=== PATIENT | female | born 1990 | race Caucasian/White ===

== ENCOUNTER 2016-11-20 07:14 | Inpatient (IN) | payer MEDICAID ==
[2016-11-20] MEDS ORDERED: IV START KIT ONE (09:27)
[2016-11-20] MEDS ORDERED: LACTATED RINGERS 1,000 ML ONE ×2 (09:27→09:28)
[2016-11-20] MEDS ORDERED: OXYTOCIN 10 UNITS/ML VIAL ONE (09:27)
[2016-11-20] MEDS ORDERED: LIDOCAINE 1% (PRES FREE) 30 ML VIAL ONE (09:28)
[2016-11-20] MEDS ORDERED: LIDOCAINE Viscous 2% 15 ML UDCUP ONE (09:28)
[2016-11-20] MEDS ORDERED: OXYTOCIN IN LR 500 ML IV ONE ×2 (09:28→09:51)
[2016-11-20] MEDS ORDERED: MINERAL OIL 25 ML BOT ONE (09:28)
[2016-11-20] MEDS ORDERED: PUMP TUBING ONE (09:28)
[2016-11-20] MEDS ORDERED: EPIDURAL PROCEDURE TRAY ONE (09:44)
[2016-11-20] MEDS: LACTATED RINGERS 1,000 ML IV PRN ×2 (09:45→11:58)
[2016-11-20] MEDS ORDERED: LACTATED RINGERS 500 ML IV ONE ×2 (09:52→10:15)
[2016-11-20] MEDS ORDERED: EPIDURAL PUMP SET ONE (10:10)
[2016-11-20] MEDS ORDERED: FENTANYL/ROPIVACAINE EPIDURAL 250 ML EP ONE (10:11)
[2016-11-20 10:22] LABS: HEMATOCRIT 39.3 % (37.0-47.0); HEMOGLOBIN 13.2 gm/l (12.0-16.0); MEAN CELL VOLUME 92.9 fl (81.0-99.0); MEAN CORPUSCULAR HEMOGLOBIN 31.2 pg (27.0-31.0); MEAN CORPUSCULAR HGB CONC 33.6 g/dl (33.0-37.0); RED CELL DISTRIBUTION WIDTH 13.5 % (11.5-14.5)
[2016-11-20] MEDS ORDERED: FENTANYL/ROPIVACAINE EPIDURAL 250 ML EP SCH (10:40)
[2016-11-20] MEDS ORDERED: METOCLOPRAMIDE HCL 5 MG/ML 2ML VIAL IV PRN (10:40)
[2016-11-20] MEDS ORDERED: ONDANSETRON 4 MG/2ML 2 ML VIAL IV PRN (10:40)
[2016-11-20] MEDS ORDERED: NALOXONE HCL 0.4 MG/ML VIAL IV PRN (10:40)
[2016-11-20] MEDS ORDERED: SODIUM CHLORIDE 0.9% 500 ML IV PRN (10:40)
[2016-11-20] MEDS ORDERED: LACTATED RINGERS 1,000 ML IV SCH ×2 (10:40→17:30)
[2016-11-20] MEDS ORDERED: DIPHENHYDRAMINE HCL 50 MG/1 ML VIAL IV PRN (10:40)
[2016-11-20] MEDS ORDERED: EPHEDRINE SULFATE 50 MG/ML 1ML VIAL IV PRN (10:40)
[2016-11-20] MEDS ORDERED: LACTATED RINGERS 500 ML IV PRN (10:40)
[2016-11-20] MEDS ORDERED: NALBUPHINE HCL 20 MG/ML AMP IV PRN (10:40)
[2016-11-20 11:17] VITALS: BMI 26.9
--- NOTE | 2016-11-20 13:22 | PCMAN ---
OB Admission Note - History : 1 Term: 0 : 0 Abortions (S&E): 0 Livin Gestational Age (weeks): 40 Days (#/7): 3 Admit Cervical Dilation:: 4.5 Admit Cervical Effacement (%):: 90 Admit Station:: -1 Admit Presentaton:: vertex Membrane Status: Intact Labor Onset (Date): 11/20/16 Labor Onset (Time): 05:00 Contractions: Yes Contraction Frequency:: 1.5-4 Heart Rate:: 150 (mod [place]ustine/+accels/intermittent variables) Status:: Cat 2 EFW:: 6# Summary of Course:: course c/b late transfer of care from [place] Rh negative, rec'd rhogam 10/18/16 @ 35w5d Measured size < dates, had growth scan done u/s: LATIA 11/17/16 10/25/16, 36w5d, EFW 2472g (25th percentile), normal S/D ratio, AC=HC Meds: PNV Allergies: NKDA SurgHx: none SH: denies x 3 - Labs Blood Type: B (-) negative Rubella Status: Immune GBS Status: Negative Abnormal Labs: None - Review of Systems +FM, +ctx, some LOF, no VB - Physical Exam General: Afebrile Psych/Mental Status: Mood/Affect Appropriate Neurological: Grossly Intact, Alert HEENT: Atraumatic, EOMI Lungs: Clear to Auscultation Bilaterally, Normal Air Movement Cardiovascular: Regular Rate and Rhythm, Normal S1, Normal S2, No Murmur Extremities: No Edema - Problems (1) Active labor at term Status: Acute Code: [id number]/Plan: 26 yo @ 40w3d, presented in early active labor 1. Labor: expectant management, pt bear q2-3min with cervical change. Consider AROM if no change in SVE. 2. FWB: cat 2 for intermittent variables, but overall reassuring 3. Pain: desires epidural 4. GBS neg 5. Rh neg: will need pp rhogam depending on Rh status
--- NOTE | 2016-11-20 13:38 | PDOC36 ---
Provider Note Subject: S: pt comfortable s/p epidural. O:97.7 97/56 76 SVE: 8.5/100/0 FHT: baseline 145bpm/mod augustine/+accels/early decels [place]: q2-3min A/P: 26 yo @ 40w3d, labor. 1. Labor: pt progressing. Attempted AROM with no LOF, pt likely ruptured at 8am per history 2. FWB: Cat 2 but overall reassuring 3. pain: s/p epidural 4. GBS neg
--- NOTE | 2016-11-20 15:52 | PDOC36 ---
Provider Note Subject: S: pt comfortable, feeling some pressure: O: 98.3 107/65 105 SVE: 9.5/100/0, very thin rim on R side [place]: q2-3 FHT: baseline 150bpm/mod augustine/+accels/intermittent variables A/P: 26 yo @ 40w3d, labor. 1. Labor: pt progressing. Pt will lie on R side, very thin rim of cervix on R. Will recheck in 1 hour, likely start pushing 2. FWB: Cat 2, overall reassuring 3. GBS neg 4. Pain: s/p epidural
[2016-11-20] MEDS ORDERED: MINERAL OIL 25 ML BOT TP ONE (17:39)
--- NOTE | 2016-11-20 19:52 | PCMDEL ---
Delivery Note - Labor 1st stage (hr/min):: 12h21m 2nd stage (hr/min):: 1h34m 3rd stage (hr/min):: 7m Total (hr/min):: 11h55m Pushed (hr/min):: 1h10m - Delivery Delivery (Date): 11/20/16 Delivery (Time): 18:55 Gender: Male Position: OA Umbilical Cord: 3 Vessel Delayed Cord Clamping:: 2-3 min 1 Minute Total: 8 5 Minute Total: 9 Placenta:: intact EBL:: 400ml Perineum:: partial 3rd degree: fibers of sphincter reinforced with 2 interrupted sutures, then repaired in standard fashion. bilateral suchal tears and bilateral labial tears repaired for excellent hemostasis Suture:: 3-0 vicryl x 4 Anesthesia/Meds:: epidural Length ROM:: 10h55m Comments:: Uncomplicated over intact perineum. Head delivered in OA position, shoulders and body easily followed. placed on maternal abdomen. Cord clamping delayed by 2min and cut by FOB. A midline partial third degree laceration was repaired in standard fashion (first fibers of external sphinchter were reinforced with interrupted sutures), then bilateral suchal tears were repaired, then bilateral labial tears. Active management of 3rd stage with IV pitocin. Fundus was firm with massage. Hemostasis confirmed. EBL 400ml.
[2016-11-20] MEDS ORDERED: LANOLIN 50 APPLIC/7G TUBE TP PRN (19:56)
[2016-11-20] MEDS ORDERED: BENZOCAINE/MENTHOL 60 APPLIC/BOT TP PRN (19:56)
[2016-11-20] MEDS ORDERED: OXYCODONE HCL 5 MG TABLET PO PRN (19:56)
[2016-11-20] MEDS ORDERED: RHOGAM 300 MCG SYRINGE IV ONE (21:51)
[2016-11-21 06:09] LABS: HEMATOCRIT 32.4 % (37.0-47.0); HEMOGLOBIN 10.7 gm/l (12.0-16.0)
[2016-11-21] MEDS: HYDROCODONE/ACETAMINOPHEN 5/325MG TABLET PO PRN ×2 (08:47→23:47)
--- NOTE | 2016-11-21 09:09 | PDOC44 ---
- Subjective Day: 1 Reports Pain Tolerable - Objective Temp Pulse Resp BP Pulse Ox 98.7 F 109 16 111/60 11/20/16 23:03 11/20/16 23:03 11/20/16 23:03 11/20/16 23:03 Lab Results 11/21/16 11/20/16 05:30 10:10 WBC 12.4 H RBC 4.23 Hgb 10.7 L D 13.2 Hct 32.4 L 39.3 Plt Count 182 11/20/16 10:10 MCH 31.2 H Current Medications Generic Name Dose Route Start Last Admin Trade Name Freq PRN Reason Stop Dose Admin Acetaminophen/Hydrocodone Bitart 1 - 2 tab 11/20/16 19:56 [place] 5/325 PO Q4H PRN Pain (Moderate) Benzocaine/Menthol 1 applic 11/20/16 19:56 11/20/16 23:07 Dermoplast TP 1 bot PRN PRN Administration Patient Comfort Docusate Sodium 100 mg 11/20/16 19:56 Colace PO DAILY PRN Comfort/constipation Emollient Ointment 1 applic 11/20/16 19:56 [id number] TP PRN PRN sore nipples Ibuprofen 600 mg 11/20/16 19:56 Motrin PO Q6H PRN Pain (Mild) Oxycodone HCl 5 - 10 mg 11/20/16 19:56 Roxicodone PO Q3H PRN Pain (Severe) Sodium Chloride 10 ml 11/20/16 19:56 Normal Saline 10ml Flush IV PRN PRN IV Flush - Physical Exam General: Afebrile Psych/Mental Status: Mood/Affect Appropriate, Judgment/Insight Intact, Bonding Well Neurological: Oriented x 4 Lungs: Clear to Auscultation Bilaterally Cardiovascular: Regular Rate and Rhythm Fundus: Firm, Below Umbilicus - Problems:Assessment/Plan (1) Vaginal delivery Status: AcuteAssessment/Plan: Doing well Normal exam Continue routine care (2) Anal sphincter tear w/o 3rd deg perineal laceration, delivered Status: AcuteAssessment/Plan: Pain controlled Using stool softener
[2016-11-21] MEDS: DOCUSATE SODIUM 100 MG CAPSULE PO PRN (10:46)
[2016-11-21] MEDS: IBUPROFEN 600 MG TABLET PO PRN ×2 (10:46→19:31)
[2016-11-21] MEDS ORDERED: DOCUSATE SODIUM 100 MG CAPSULE PO PRN (18:01)
[2016-11-21] MEDS ORDERED: HYDROCODONE/ACETAMINOPHEN 5/325MG TABLET PO PRN (18:01)
[2016-11-21] MEDS ORDERED: IBUPROFEN 800 MG TABLET PO PRN (18:01)
[2016-11-21] MEDS ORDERED: MAGNESIUM HYDROXIDE 30 ML UDCUP PO PRN (18:01)
[2016-11-21] MEDS ORDERED: SENNOSIDES 8.6 MG TABLET PO PRN (18:01)
[2016-11-21] MEDS ORDERED: LACTATED RINGERS 1,000 ML IV PRN (18:01)
[2016-11-21] MEDS ORDERED: BENZOCAINE/MENTHOL 60 APPLIC/BOT TP PRN (18:01)
[2016-11-21] MEDS ORDERED: OXYCODONE HCL 5 MG TABLET PO PRN (18:01)
[2016-11-21] MEDS ORDERED: LANOLIN 50 APPLIC/7G TUBE TP PRN (18:01)
[2016-11-22 06:54] LABS: HEMATOCRIT 29.9 % (37.0-47.0); HEMOGLOBIN 9.8 gm/l (12.0-16.0)
[2016-11-22] MEDS: DOCUSATE SODIUM 100 MG CAPSULE PO PRN (08:43)
[2016-11-22] MEDS: IBUPROFEN 600 MG TABLET PO PRN (08:44)
[2016-11-22 08:56] VITALS: BP 108/56
--- NOTE | 2016-11-22 11:40 | PDOC39B ---
Hospital Course: ADMIT DATE: 11/20/16 DISCHARGE DATE: 11/22/16 ADMISSION DIAGNOSES: IUP at term in active labor PROCEDURES: HISTORY OF PRESENT ILLNESS: 26 year old G1 T0 L0 at 40 weeks 3 days presenting with [facility] HOSPITAL COURSE: The patient was admitted in early active labor. Progressed to complete. Uncomplicated w partial 3rd deg perineal lac, s/p repair. By day of discharge the patient is ambulating, eating, voiding, and passing flatus without difficulty. Pain is controlled and lochia is appropriate. She is . - Physical Exam Vital Signs: Temp Pulse Resp BP Pulse Ox 97.8 F 88 18 108/56 11/22/16 08:20 11/22/16 08:20 11/22/16 08:20 11/22/16 08:20 General: Afebrile, No Acute Distress Psych/Mental Status: Mood/Affect Appropriate, Judgment/Insight Intact, Bonding Well Neurological: Grossly Intact, Alert, Normal Speech HEENT: Atraumatic, Mucous membr. moist/pink Lungs: Clear to Auscultation Bilaterally Cardiovascular: Regular Rate and Rhythm Breast: Soft Fundus: Firm, Midline, Below Umbilicus Skin: Normal Color, Warm, Dry, Intact, No Rash - Discharge Diagnosis (1) Anal sphincter tear w/o 3rd deg perineal laceration, delivered Status: AcuteAssessment/Plan: Pain controlled Using stool softener (2) Vaginal delivery Status: AcuteAssessment/Plan: Doing well PPD#2 Normal exam Continue routine care DC home PP precautions Pelvic rest - Discharge Plan Condition: Good Disposition: Home Instruction Forms: Vaginal Discharge Instructions Prescriptions: Docusate Sodium [COLACE 100 MG CAPSULE (F)] 100 mg PO DAILY #60 capsule Benzocaine/Menthol [DERMOPLAST SPRAY (F)] 1 applic TP PRN PRN #1 bot PRN Reason: Patient Comfort Ibuprofen [IBUPROFEN 600 MG TABLET ([facility])] 600 mg PO Q6H PRN #60 tablet PRN Reason: Pain (Mild) Lanolin [LANOLIN 7 G TUBE (F)] 1 applic TP PRN PRN #1 tube PRN Reason: Sore Nipples Follow-Up: Sarah Vincent PA [Primary Care Provider] - 11/24/16 (clinic will call to sched 3d mom/baby appt. Also will need to sched 6 wk PP exam)
== END 2016-11-22 12:55 | disposition home or self-care (01) | DRG 775 ==
LOC: FBCOUT 07:14 → FBC 07:17 → FBCOUT 09:16 → FBC 09:17
PROVIDERS: ADMIT Family Medicine; ATTEND Family Medicine
PROC: 0DQR0ZZ Repair Anal Sphincter, Open Approach (ICD-10-PCS; principal; 2016-11-20)
PROC: 10E0XZZ Delivery of Products of Conception, External Approach (ICD-10-PCS; 2016-11-20)
DX: O70.23 Third degree perineal laceration during delivery, IIIc (principal); O48.0 Post-term pregnancy; Z3A.40 40 weeks gestation of pregnancy; Z37.0 Single live birth